=== PATIENT | male | born 1955 | race Caucasian/White ===

== ENCOUNTER → 2023-06-11 07:46 | Outpatient (REF) | payer MEDICARE, SELFPAY ==
[2023-06-11 09:04] LABS: Hematocrit 39.5 % (39.0-52.0); Hemoglobin 14.4 g/dL (13.0-18.0); Mean Corp Hgb Conc. 36.5 g/dL (33.0-37.0); Mean Corpuscular Hgb 32.5 pg (27.0-31.0); Mean Corpuscular Volume 89.2 fL (80.0-94.0); Mean Platelet Volume 9.5 fL (7.4-10.4); Platelet Count 220 10^3/uL (130-400); Red Blood Cell Count 4.43 10^6/uL (4.70-6.10); Red Cell Dist. Width 12.3 % (11.5-14.5); White Blood Cell Count 5.2 10^3/uL (4.8-10.8)
== END ==
LOC: SDSPAT 07:46
PROVIDERS: ATTENDING PHYSICIAN Specialist; FAMILY PHYSICIAN Family Medicine
DX: Z01.818 Encounter for other preprocedural examination (principal)
CPT/HCPCS: 36415; 85027; 93005

== ENCOUNTER 2023-06-19 06:29 | Day surgery (SDC) | payer MEDICARE, SELFPAY ==
[2023-06-11 08:04] VITALS: BMI 34.8
[2023-06-19] VITALS (9 sets, daily range): BP systolic 115–141; BP diastolic 60–93; BMI 34.8; BMI 36.4
[2023-06-19] MEDS: TYLENOL 1000 MG PO (08:18)
[2023-06-19] MEDS: CELEBREX 200 MG PO (08:18)
[2023-06-19] MEDS: NORMOSOL-R 1000 IV (08:19)
== END 2023-06-19 13:00 | disposition home or self-care (01) ==
LOC: SDS 06:29
PROVIDERS: ATTENDING PHYSICIAN Specialist
DX: S83.232A Complex tear of medial meniscus, current injury, left knee, initial encounter (principal); X58.XXXA Exposure to other specified factors, initial encounter
CPT/HCPCS: 29881